=== PATIENT | male | born 1970 | race Caucasian/White ===

== ENCOUNTER 2018-03-17 12:26 | Day surgery (SDC) | payer OTHER, SELFPAY | END 2018-03-18 14:15 | disposition home or self-care (01) | PROVIDERS: Family Provider Neuromusculoskeletal Medicine, Sports Medicine; PCP Neuromusculoskeletal Medicine, Sports Medicine; Visit Provider Orthopaedic Surgery | DX: M50.223 Other cervical disc displacement at C6-C7 level (principal); S16.1XXA Strain of muscle, fascia and tendon at neck level, initial encounter; Z72.0 Tobacco use | CPT/HCPCS: 22856; 72040; 76000; 97116; 97161; C1776; G8978; G8979; J0690; J1100; J2250; J2405; J2704; J3010 ==